=== PATIENT | male | born 1995 | race Hispanic/Latino ===

== ENCOUNTER 2022-06-08 20:34 | Inpatient (IN) | payer OTHER, SELFPAY ==
[~2022-06-08 20:34] MED LIST: Iopamidol-370 76% 500 ML 1 ML ONE; Iopamidol-M 200 41% 20 ML VIAL ONE
[2022-06-08] MEDS ORDERED: CEFAZOLIN 1 GM VIAL ONE (20:43)
[2022-06-08] MEDS ORDERED: Fentanyl 100 MCG/2 ML VIAL ONE ×4 (20:43→23:49)
[2022-06-08] MEDS ORDERED: Boostrix 0.5 ML (Tdap) VIAL (>/=7 yrs of age) ONE (20:43)
[2022-06-08 21:09] LABS: #Basophils 0.1 thou/uL (0.0-0.2); #Eosinphils 0.2 thou/uL (0.0-0.7); #Lymphocytes 4.7 thou/uL (1.20-3.40); #Monocytes 0.6 thou/uL (0.11-0.59); #Neutrophils 5.4 thou/uL (1.40-6.50); %Eosinophils 2.2 % (0.0-10.0); %Lymphocytes 42.8 % (21.0-51.0); %Monocytes 5.5 % (0.0-10.0); %Neutrophils 48.5 % (42.0-75.0); Mean Corpuscular HGB CONC 34.6 g/dL (32.0-36.0); Mean Corpuscular Hemoglobin 31.8 pg (27.0-31.0); Mean Platelet Volume 7.1 fL (7.4-10.4); Platelet Count 293 thou/uL (130-400); Red Blood Cell (RBC) Count 4.71 mill/uL (4.70-6.10); White Blood Cell (WBC) Count 11.1 thou/uL (4.8-10.8)
[2022-06-08] MEDS ORDERED: Ondansetron PF 4 MG/2 ML Vial ONE (21:18)
[2022-06-08] MEDS ORDERED: Morphine 4 MG/ML VIAL ONE (21:18)
[2022-06-08 21:32] LABS: ALT (SGPT) 63 U/L (8-55); AST (SGOT) 69 U/L (5-34); Albumin 4.1 g/dL (3.5-5.0); Alkaline Phosphatase 76 U/L (40-110); Anion Gap 21 mmol/L (10-20); BUN (Urea Nitrogen) 19 mg/dL (8.9-20.6); Bilirubin, Total 0.5 mg/dL (0.2-1.2); Calc. Creatinine Clearance 0 mL/min (70-130); Calcium 8.8 mg/dL (7.8-10.44); Carbon Dioxide 13 mmol/L (22-29); Chloride 105 mmol/L (98-107); Estimated GFR 106; Globulin 2.7 g/dL (2.4-3.5); Glucose 150 mg/dL (70-105); Potassium 3.9 mmol/L (3.5-5.1); Protein, Total 6.8 g/dL (6.0-8.3); Prothrombin Time 13.7 sec (12.0-14.7); Sodium 135 mmol/L (136-145)
[2022-06-08 21:33] LABS: PTT 26.2 sec (22.9-36.1)
[2022-06-08] MEDS ORDERED: Ketorolac Tromethamine 30 MG/ML VIAL ONE (22:08)
[2022-06-08] MEDS ORDERED: hydrALAZINE 20 MG/ML VIAL SLOW IVP PRN (22:20)
[2022-06-08] MEDS ORDERED: Ondansetron PF 4 MG/2 ML Vial IVP PRN (22:20)
[2022-06-08] MEDS ORDERED: Lorazepam 2 MG/ML VIAL SLOW IVP PRN (22:20)
[2022-06-08] MEDS ORDERED: Ondansetron ODT 4 MG TAB PO PRN (22:20)
[2022-06-08] MEDS ORDERED: Naloxone HCl 0.4 mg/ml Vial IV PRN (22:23)
[2022-06-08] MEDS ORDERED: diphenhydrAMINE 25 MG CAP PO PRN (22:23)
[2022-06-08] MEDS ORDERED: diphenhydrAMINE 50 MG/ML VIAL IM PRN (22:23)
[2022-06-08] MEDS ORDERED: Zolpidem Tartrate 5 MG TAB PO PRN (22:23)
[2022-06-08] MEDS ORDERED: Promethazine HCl 25 MG/ML VIAL IM PRN (22:23)
[2022-06-08] MEDS ORDERED: diphenhydrAMINE 50 MG/ML VIAL IVP PRN (22:23)
[2022-06-08] MEDS ORDERED: HYDROmorphone 10 mg/100 ml CADD IVPB PRN (22:23)
[2022-06-08] MEDS ORDERED: Communication Order-Pharmacy FS SCH (22:30)
[2022-06-08 23:05] LABS: Acetaminophen Less than 10.0 mcg/mL (10.0-30.0); Alcohol Less than 10 mg/dL (Less than 10); Salicylate Less than 8.0 mg/dL (15.0-30.0)
[2022-06-09] MEDS: Sodium Chloride 0.9% 1,000 ML IV SCH ×5 (00:14→21:54)
[2022-06-09] MEDS: Acetaminophen 500 MG TAB PO SCH ×4 (01:11→21:54)
[2022-06-09 01:49] LABS: Hemoglobin 13.4 g/dL (14.0-18.0); Mean Corpuscular HGB CONC 34.7 g/dL (32.0-36.0); Mean Corpuscular Hemoglobin 32.1 pg (27.0-31.0); Mean Corpuscular Volume 92.6 fL (78.0-98.0); Mean Platelet Volume 7.1 fL (7.4-10.4); Platelet Count 296 thou/uL (130-400); Red Blood Cell (RBC) Count 4.16 mill/uL (4.70-6.10)
[2022-06-09 02:14] LABS: Band 22 % (5-11); Lymphocytes 8 % (21-51); MDiff Complete? YES; Monocytes 8 % (0-10); Neutrophil 62 % (42-75); White Blood Cell (WBC) Count 20.6 thou/uL (4.8-10.8)
[2022-06-09 02:15] LABS: SARS-CoV-2 NAA Rapid Test Not Detected (NotDetected)
[2022-06-09 03:38] LABS: #Lymphocytes 0.9 thou/uL (1.20-3.40); #Monocytes 1.8 thou/uL (0.11-0.59); #Neutrophils 17.4 thou/uL (1.40-6.50); %Basophils 0.1 % (0.0-1.0); %Eosinophils 0.1 % (0.0-10.0); %Lymphocytes 4.6 % (21.0-51.0); %Neutrophils 86.2 % (42.0-75.0); Hemoglobin 13.2 g/dL (14.0-18.0); Mean Corpuscular Hemoglobin 32.7 pg (27.0-31.0); Mean Corpuscular Volume 93.3 fL (78.0-98.0); Platelet Count 286 thou/uL (130-400); RBC Distribution Width 11.9 % (11.5-14.5); Red Blood Cell (RBC) Count 4.04 mill/uL (4.70-6.10); White Blood Cell (WBC) Count 20.2 thou/uL (4.8-10.8)
[2022-06-09] MEDS: Ondansetron PF 4 MG/2 ML Vial IVP PRN ×2 (03:42→08:20)
[2022-06-09 03:59] LABS: Anion Gap 16 mmol/L (10-20); BUN (Urea Nitrogen) 20 mg/dL (8.9-20.6); CK (CPK) 1734 U/L (30-200); Calc. Creatinine Clearance 130 mL/min (70-130); Calcium 8.5 mg/dL (7.8-10.44); Carbon Dioxide 16 mmol/L (22-29); Chloride 108 mmol/L (98-107); Estimated GFR 97; Glucose 171 mg/dL (70-105); Potassium 5.3 mmol/L (3.5-5.1); Sodium 135 mmol/L (136-145)
[2022-06-09 04:01] LABS: INR-International Normal Ratio 1.1; Prothrombin Time 14.3 sec (12.0-14.7)
[2022-06-09 04:02] LABS: PTT 25.4 sec (22.9-36.1)
[2022-06-09] MEDS ORDERED: CEFAZOLIN 2 GM in Sodium Chloride 0.9% 100 ML IVPB SCH (07:30)
[2022-06-09] MEDS: Famotidine/PF 20 mg/2ml Vial SLOW IVP SCH ×2 (10:12→22:08)
[2022-06-09] MEDS: Pregabalin 50 MG CAP PO SCH ×2 (13:21→22:08)
[2022-06-09] MEDS ORDERED: CEFAZOLIN 2 GM VIAL ONE (13:26)
[2022-06-09] MEDS ORDERED: Sodium Chloride 0.9% 100 ML ONE (13:27)
[2022-06-09] MEDS ORDERED: Promethazine HCl 25 MG/ML VIAL IM PRN (14:42)
[2022-06-09] MEDS ORDERED: Promethazine HCl 25 MG/ML VIAL IVPB PRN (14:42)
[2022-06-09] MEDS ORDERED: HYDROmorphone 2 MG/ML VIAL SLOW IVP PRN (14:42)
[2022-06-09] MEDS ORDERED: fentaNYL Citrate/PF 100 MCG/2 ML SYRINGE ONE ×3 (15:12→17:31)
[2022-06-09] MEDS ORDERED: PROPOFOL 200 MG/20 ML VIAL ONE (15:17)
[2022-06-09] MEDS ORDERED: Ondansetron PF 4 MG/2 ML Vial ONE ×2 (15:17→18:30)
[2022-06-09] MEDS ORDERED: Rocuronium Bromide 10 MG/ML (10ML VIAL) ONE (15:17)
[2022-06-09] MEDS ORDERED: SUGAMMADEX SODIUM 200 MG/2 ML VIAL ONE (16:35)
[2022-06-09] MEDS ORDERED: Fentanyl 100 MCG/2 ML VIAL ONE (18:26)
[2022-06-10] MEDS: CEFAZOLIN 2 GM in Sodium Chloride 0.9% 100 ML IVPB SCH ×3 (00:07→19:19)
[2022-06-10] MEDS: Acetaminophen 500 MG TAB PO SCH ×4 (00:10→18:25)
[2022-06-10] MEDS: Sodium Chloride 0.9% 1,000 ML IV SCH ×4 (03:20→21:23)
[2022-06-10 06:06] LABS: #Lymphocytes 1.7 thou/uL (1.20-3.40); #Neutrophils 4.5 thou/uL (1.40-6.50); %Basophils 0.3 % (0.0-1.0); %Eosinophils 0.2 % (0.0-10.0); %Lymphocytes 23.9 % (21.0-51.0); %Monocytes 13.5 % (0.0-10.0); %Neutrophils 62.2 % (42.0-75.0); Hemoglobin 7.2 g/dL (14.0-18.0); Mean Corpuscular HGB CONC 33.5 g/dL (32.0-36.0); Mean Corpuscular Hemoglobin 31.7 pg (27.0-31.0); Mean Corpuscular Volume 94.7 fL (78.0-98.0); Mean Platelet Volume 6.8 fL (7.4-10.4); Platelet Count 136 thou/uL (130-400); Red Blood Cell (RBC) Count 2.28 mill/uL (4.70-6.10); White Blood Cell (WBC) Count 7.2 thou/uL (4.8-10.8)
[2022-06-10 06:22] LABS: Anion Gap 12 mmol/L (10-20); BUN (Urea Nitrogen) 22 mg/dL (8.9-20.6); CK (CPK) 2495 U/L (30-200); Calc. Creatinine Clearance 99 mL/min (70-130); Calcium 7.1 mg/dL (7.8-10.44); Carbon Dioxide 22 mmol/L (22-29); Chloride 107 mmol/L (98-107); Estimated GFR 67; Glucose 128 mg/dL (70-105); Phosphorus 2.7 mg/dL (2.3-4.7); Potassium 4.5 mmol/L (3.5-5.1); Sodium 136 mmol/L (136-145)
[2022-06-10] MEDS ORDERED: Sodium Phosphate 15 MMOL in Sodium Chloride 0.9% 250 ML 250 ML IVPB SCH (07:45)
[2022-06-10] MEDS ORDERED: Ferrous Sulfate 325 MG TAB PO SCH ×2 (08:00→09:00)
[2022-06-10] MEDS: Famotidine/PF 20 mg/2ml Vial SLOW IVP SCH ×2 (09:09→20:04)
[2022-06-10] MEDS: Pregabalin 50 MG CAP PO SCH ×2 (09:10→20:04)
[2022-06-10] MEDS: Ondansetron PF 4 MG/2 ML Vial IVP PRN ×2 (09:18→20:10)
[2022-06-10] MEDS: traMADol HCl 50 MG TAB PO SCH ×2 (11:35→18:25)
[2022-06-10] MEDS: Ascorbic Acid 500 mg Chewable Tablet PO SCH ×2 (11:39→20:04)
[2022-06-10] MEDS: Ferrous Sulfate 325 MG TAB PO SCH (20:04)
[2022-06-11] MEDS: traMADol HCl 50 MG TAB PO SCH ×5 (00:01→23:06)
[2022-06-11] MEDS: Acetaminophen 500 MG TAB PO SCH ×5 (05:29→23:05)
[2022-06-11] MEDS: Sodium Chloride 0.9% 1,000 ML IV SCH (05:36)
[2022-06-11 06:15] LABS: #Eosinphils 0.1 thou/uL (0.0-0.7); #Lymphocytes 1.5 thou/uL (1.20-3.40); #Monocytes 0.8 thou/uL (0.11-0.59); #Neutrophils 5.1 thou/uL (1.40-6.50); %Basophils 0.2 % (0.0-1.0); %Eosinophils 0.9 % (0.0-10.0); %Monocytes 10.6 % (0.0-10.0); %Neutrophils 68.3 % (42.0-75.0); Mean Corpuscular HGB CONC 34.1 g/dL (32.0-36.0); Mean Corpuscular Volume 93.8 fL (78.0-98.0); Mean Platelet Volume 7.1 fL (7.4-10.4); Platelet Count 132 thou/uL (130-400); RBC Distribution Width 11.8 % (11.5-14.5); White Blood Cell (WBC) Count 7.4 thou/uL (4.8-10.8)
[2022-06-11 06:40] LABS: ALT (SGPT) 36 U/L (8-55); AST (SGOT) 74 U/L (5-34); Albumin 2.6 g/dL (3.5-5.0); Alkaline Phosphatase 44 U/L (40-110); Anion Gap 11 mmol/L (10-20); BUN (Urea Nitrogen) 8 mg/dL (8.9-20.6); Bilirubin, Total 0.7 mg/dL (0.2-1.2); CK (CPK) 2594 U/L (30-200); Calc. Creatinine Clearance 202 mL/min (70-130); Calcium 7.1 mg/dL (7.8-10.44); Carbon Dioxide 23 mmol/L (22-29); Chloride 108 mmol/L (98-107); Estimated GFR 128; Globulin 1.9 g/dL (2.4-3.5); Glucose 98 mg/dL (70-105); Magnesium 1.8 mg/dL (1.6-2.6); Phosphorus 1.5 mg/dL (2.3-4.7); Protein, Total 4.5 g/dL (6.0-8.3); Sodium 138 mmol/L (136-145)
[2022-06-11 08:00] LABS: Hemoglobin 7.2 g/dL (14.0-18.0)
[2022-06-11] MEDS: Pregabalin 50 MG CAP PO SCH (09:21)
[2022-06-11] MEDS: Famotidine/PF 20 mg/2ml Vial SLOW IVP SCH ×2 (09:21→20:24)
[2022-06-11] MEDS: Ascorbic Acid 500 mg Chewable Tablet PO SCH ×2 (09:22→20:24)
[2022-06-11] MEDS: Ferrous Sulfate 325 MG TAB PO SCH ×2 (09:22→20:28)
[2022-06-11] MEDS ORDERED: Morphine 2 MG/ML VIAL SLOW IVP PRN (09:36)
[2022-06-11] MEDS: Cyclobenzaprine 10 MG TAB PO PRN ×2 (12:19→20:25)
[2022-06-11] MEDS: Gabapentin 300 MG CAP PO SCH (20:26)
[2022-06-12] MEDS: Acetaminophen 500 MG TAB PO SCH ×4 (05:15→23:17)
[2022-06-12] MEDS: traMADol HCl 50 MG TAB PO SCH ×4 (05:20→23:17)
[2022-06-12 06:02] LABS: Hemoglobin 7.4 g/dL (14.0-18.0)
[2022-06-12 06:37] LABS: Anion Gap 12 mmol/L (10-20); BUN (Urea Nitrogen) 9 mg/dL (8.9-20.6); CK (CPK) 1587 U/L (30-200); Calc. Creatinine Clearance 197 mL/min (70-130); Carbon Dioxide 27 mmol/L (22-29); Chloride 105 mmol/L (98-107); Estimated GFR 127; Glucose 107 mg/dL (70-105); Magnesium 1.8 mg/dL (1.6-2.6); Phosphorus 2.4 mg/dL (2.3-4.7); Sodium 140 mmol/L (136-145)
[2022-06-12] MEDS: Ascorbic Acid 500 mg Chewable Tablet PO SCH ×2 (08:10→19:42)
[2022-06-12] MEDS: Gabapentin 300 MG CAP PO SCH ×3 (08:10→19:43)
[2022-06-12] MEDS: Ferrous Sulfate 325 MG TAB PO SCH ×2 (08:10→19:42)
[2022-06-12] MEDS: Famotidine/PF 20 mg/2ml Vial SLOW IVP SCH ×2 (08:10→19:42)
[2022-06-12] MEDS: Cyclobenzaprine 10 MG TAB PO PRN ×2 (08:17→19:44)
[2022-06-12] MEDS ORDERED: Enoxaparin Sodium 40 MG/0.4 ML SYRINGE SC SCH (10:00)
[2022-06-12] MEDS ORDERED: Bisacodyl 5 MG TAB PO SCH (14:23)
[2022-06-12] MEDS: Senokot S 8.6-50 MG TAB PO SCH (19:44)
[2022-06-13] MEDS: Acetaminophen 500 MG TAB PO SCH ×4 (05:20→23:33)
[2022-06-13] MEDS: traMADol HCl 50 MG TAB PO SCH ×4 (05:22→23:34)
[2022-06-13 06:16] LABS: #Eosinphils 0.5 thou/uL (0.0-0.7); #Lymphocytes 1.7 thou/uL (1.20-3.40); #Monocytes 0.7 thou/uL (0.11-0.59); #Neutrophils 4.2 thou/uL (1.40-6.50); %Basophils 0.2 % (0.0-1.0); %Eosinophils 7.1 % (0.0-10.0); %Lymphocytes 24.3 % (21.0-51.0); %Monocytes 9.2 % (0.0-10.0); %Neutrophils 59.2 % (42.0-75.0); Hemoglobin 8.3 g/dL (14.0-18.0); Mean Corpuscular HGB CONC 33.8 g/dL (32.0-36.0); Mean Corpuscular Hemoglobin 32.3 pg (27.0-31.0); Mean Corpuscular Volume 95.4 fL (78.0-98.0); Mean Platelet Volume 6.6 fL (7.4-10.4); Platelet Count 229 thou/uL (130-400); Red Blood Cell (RBC) Count 2.58 mill/uL (4.70-6.10)
[2022-06-13] MEDS: Ferrous Sulfate 325 MG TAB PO SCH ×2 (08:00→20:39)
[2022-06-13] MEDS: Cyclobenzaprine 10 MG TAB PO PRN ×2 (08:00→16:43)
[2022-06-13] MEDS: Famotidine/PF 20 mg/2ml Vial SLOW IVP SCH (08:02)
[2022-06-13] MEDS: Senokot S 8.6-50 MG TAB PO SCH ×2 (08:02→20:38)
[2022-06-13] MEDS: Gabapentin 300 MG CAP PO SCH ×3 (08:02→20:37)
[2022-06-13] MEDS: Enoxaparin Sodium 40 MG/0.4 ML SYRINGE SC SCH (08:02)
[2022-06-13] MEDS: Polyethylene Glycol 3350 17 GM Packet PO SCH (08:02)
[2022-06-13] MEDS: Ascorbic Acid 500 mg Chewable Tablet PO SCH ×2 (08:02→20:36)
[2022-06-13] MEDS ORDERED: Scopolamine 1.5 mg/72 hour Patch TD SCH (12:00)
[2022-06-13] MEDS: Famotidine 20 MG TAB PO SCH (20:39)
[2022-06-14] MEDS: Acetaminophen 500 MG TAB PO SCH ×4 (05:07→23:07)
[2022-06-14] MEDS: traMADol HCl 50 MG TAB PO SCH ×4 (05:07→23:04)
[2022-06-14] MEDS: Cyclobenzaprine 10 MG TAB PO PRN ×3 (05:08→23:03)
[2022-06-14] MEDS: Polyethylene Glycol 3350 17 GM Packet PO SCH (08:19)
[2022-06-14] MEDS: Enoxaparin Sodium 40 MG/0.4 ML SYRINGE SC SCH (08:19)
[2022-06-14] MEDS: Ferrous Sulfate 325 MG TAB PO SCH ×2 (08:19→20:40)
[2022-06-14] MEDS: Gabapentin 300 MG CAP PO SCH ×3 (08:19→20:41)
[2022-06-14] MEDS: Famotidine 20 MG TAB PO SCH ×2 (08:19→20:41)
[2022-06-14] MEDS: Ascorbic Acid 500 mg Chewable Tablet PO SCH ×2 (08:19→20:40)
[2022-06-14] MEDS: Senokot S 8.6-50 MG TAB PO SCH ×2 (08:20→20:40)
[2022-06-14] MEDS ORDERED: Acetaminophen/Codeine 30-300mg Tablet PO PRN (09:56)
[2022-06-14] MEDS: Ibuprofen 200 MG TAB PO SCH ×2 (10:19→17:26)
[2022-06-15] MEDS: Ibuprofen 200 MG TAB PO SCH ×4 (02:29→17:44)
[2022-06-15] MEDS: Acetaminophen 500 MG TAB PO SCH (05:21)
[2022-06-15] MEDS: traMADol HCl 50 MG TAB PO SCH ×4 (05:23→22:51)
[2022-06-15] MEDS: Cyclobenzaprine 10 MG TAB PO PRN ×2 (06:25→22:45)
[2022-06-15] MEDS: Gabapentin 300 MG CAP PO SCH ×3 (08:59→20:28)
[2022-06-15] MEDS: Polyethylene Glycol 3350 17 GM Packet PO SCH (08:59)
[2022-06-15] MEDS: Ascorbic Acid 500 mg Chewable Tablet PO SCH ×2 (09:00→20:28)
[2022-06-15] MEDS: Ferrous Sulfate 325 MG TAB PO SCH ×2 (09:00→20:27)
[2022-06-15] MEDS: Famotidine 20 MG TAB PO SCH ×2 (09:00→20:28)
[2022-06-15] MEDS: Senokot S 8.6-50 MG TAB PO SCH ×2 (09:00→20:27)
[2022-06-15] MEDS: Enoxaparin Sodium 40 MG/0.4 ML SYRINGE SC SCH (09:01)
[2022-06-15] MEDS ORDERED: Acetaminophen/Codeine 30-300mg Tablet PO PRN (11:00)
[2022-06-15] MEDS: cloNIDine 0.1 MG TAB PO SCH ×3 (11:52→22:47)
[2022-06-15] MEDS: Acetaminophen/Codeine 30-300mg Tablet PO SCH ×3 (11:53→22:45)
[2022-06-15] MEDS ORDERED: Acetaminophen 325 MG TAB PO SCH (12:00)
[2022-06-16] MEDS: Ibuprofen 200 MG TAB PO SCH ×4 (03:08→17:49)
[2022-06-16] MEDS: Acetaminophen/Codeine 30-300mg Tablet PO SCH ×3 (04:22→17:48)
[2022-06-16] MEDS: traMADol HCl 50 MG TAB PO SCH ×4 (06:16→23:01)
[2022-06-16] MEDS: cloNIDine 0.1 MG TAB PO SCH ×3 (06:19→18:17)
[2022-06-16 08:00] LABS: #Eosinphils 0.3 thou/uL (0.0-0.7); #Lymphocytes 1.6 thou/uL (1.20-3.40); #Monocytes 0.9 thou/uL (0.11-0.59); %Basophils 0.5 % (0.0-1.0); %Eosinophils 4.1 % (0.0-10.0); %Lymphocytes 20.7 % (21.0-51.0); %Monocytes 11.1 % (0.0-10.0); %Neutrophils 63.6 % (42.0-75.0); Hemoglobin 8.2 g/dL (14.0-18.0); Mean Corpuscular HGB CONC 33.7 g/dL (32.0-36.0); Mean Corpuscular Hemoglobin 32.1 pg (27.0-31.0); Mean Corpuscular Volume 95.4 fL (78.0-98.0); Mean Platelet Volume 6.2 fL (7.4-10.4); Platelet Count 378 thou/uL (130-400); RBC Distribution Width 12.3 % (11.5-14.5); Red Blood Cell (RBC) Count 2.54 mill/uL (4.70-6.10); White Blood Cell (WBC) Count 7.9 thou/uL (4.8-10.8)
[2022-06-16] MEDS: Gabapentin 300 MG CAP PO SCH ×3 (09:34→21:04)
[2022-06-16] MEDS: Enoxaparin Sodium 40 MG/0.4 ML SYRINGE SC SCH (09:34)
[2022-06-16] MEDS: Polyethylene Glycol 3350 17 GM Packet PO SCH (09:34)
[2022-06-16] MEDS: Ascorbic Acid 500 mg Chewable Tablet PO SCH ×2 (09:35→21:03)
[2022-06-16] MEDS: Senokot S 8.6-50 MG TAB PO SCH ×2 (09:35→21:05)
[2022-06-16] MEDS: Famotidine 20 MG TAB PO SCH ×2 (09:35→21:05)
[2022-06-16] MEDS: Ferrous Sulfate 325 MG TAB PO SCH ×2 (09:41→21:15)
[2022-06-16] MEDS ORDERED: Scopolamine 1.5 mg/72 hour Patch TD SCH (11:00)
[2022-06-16 18:04] VITALS: BMI 31.9
[2022-06-16] MEDS: Cyclobenzaprine 10 MG TAB PO PRN (22:59)
[2022-06-17] MEDS: cloNIDine 0.1 MG TAB PO SCH ×2 (00:25→05:31)
[2022-06-17] MEDS: Acetaminophen/Codeine 30-300mg Tablet PO SCH ×4 (00:28→12:34)
[2022-06-17 05:06] VITALS: TEMP 98.7
[2022-06-17] MEDS: Ibuprofen 200 MG TAB PO SCH ×2 (05:29→09:45)
[2022-06-17] MEDS: traMADol HCl 50 MG TAB PO SCH ×2 (05:32→12:33)
[2022-06-17] MEDS: Cyclobenzaprine 10 MG TAB PO PRN (07:05)
[2022-06-17] MEDS: Gabapentin 300 MG CAP PO SCH (08:47)
[2022-06-17] MEDS: Ascorbic Acid 500 mg Chewable Tablet PO SCH (09:45)
[2022-06-17] MEDS: Senokot S 8.6-50 MG TAB PO SCH (09:47)
[2022-06-17] MEDS: Enoxaparin Sodium 40 MG/0.4 ML SYRINGE SC SCH ×2 (09:48→09:51)
[2022-06-17] MEDS: Polyethylene Glycol 3350 17 GM Packet PO SCH (09:48)
[2022-06-17] MEDS: Ferrous Sulfate 325 MG TAB PO SCH (09:48)
[2022-06-17] MEDS: Famotidine 20 MG TAB PO SCH (09:48)
[2022-06-17 13:18] VITALS: BP 139/69
== END 2022-06-17 14:49 | disposition home or self-care (01) | DRG 958 ==
LOC: ERS 20:34 → IMCU/EMU 22:24 → SURG B 06-09 13:38
PROVIDERS: ADMIT Specialist; ATTEND Surgery
PROC: 0TJB8ZZ Inspection of Bladder, Via Natural or Artificial Opening Endoscopic (ICD-10-PCS; principal; 2022-06-09)
PROC: 0QS204Z Reposition Right Pelvic Bone with Internal Fixation Device, Open Approach (ICD-10-PCS; 2022-06-09)
PROC: 30233N1 Transfusion of Nonautologous Red Blood Cells into Peripheral Vein, Percutaneous Approach (ICD-10-PCS; 2022-06-10)
DX: S32.9XXA Fracture of unspecified parts of lumbosacral spine and pelvis, initial encounter for closed fracture (principal); D62 Acute posthemorrhagic anemia; S32.14XA Type 1 fracture of sacrum, initial encounter for closed fracture; S32.059A Unspecified fracture of fifth lumbar vertebra, initial encounter for closed fracture; S37.20XA Unspecified injury of bladder, initial encounter; S36.81XA Injury of peritoneum, initial encounter; N17.9 Acute kidney failure, unspecified; G89.11 Acute pain due to trauma; S62.307A Unspecified fracture of fifth metacarpal bone, left hand, initial encounter for closed fracture; T79.6XXA Traumatic ischemia of muscle, initial encounter; S62.617A Displaced fracture of proximal phalanx of left little finger, initial encounter for closed fracture; N50.89 Other specified disorders of the male genital organs; S33.2XXA Dislocation of sacroiliac and sacrococcygeal joint, initial encounter; Z20.822 Contact with and (suspected) exposure to COVID-19; V29.88XA Motorcycle rider (driver) (passenger) injured in other specified transport accidents, initial encounter
CPT/HCPCS: 26720; 36415; 36430; 51610; 70450; 71260; 72125; 72170; 72192; 74177; 74450; 76000; 80048; 80053; 80307; 82550; 83735; 84100; 85014; 85018; 85025; 85610; 85730; 86850; 86900; 86901; 90471; 90715; 96365; 96375; 96376; C1713; C1769; C1776; J0690; J1650; J1885; J2270; J2405; J2704; J3010; J3490; J7050; P9016; Q9966; Q9967; S0028; U0002